=== PATIENT | female | born 1950 | race Asian ===

== ENCOUNTER 2018-05-19 13:41 | Outpatient (CLI) | payer BC | END 2018-05-19 13:42 | disposition home or self-care (01) | LOC: BICMAMMO 13:41 | PROVIDERS: ATTEND Obstetrics & Gynecology | DX: Z12.31 Encounter for screening mammogram for malignant neoplasm of breast (principal); Z80.3 Family history of malignant neoplasm of breast; Z85.3 Personal history of malignant neoplasm of breast | CPT/HCPCS: 77063; 77067 ==